=== PATIENT | female | born 1955 | race Caucasian/White ===

== ENCOUNTER 2021-05-04 03:34 | Emergency (ER) | payer SELFPAY ==
[~2021-05-04] VITALS: Ht 152.4 cm; Wt 61.0 kg
[2021-05-04] MEDS ORDERED: FAMOTIDINE 20MG/2ML VIAL IV STA (04:11)
[2021-05-04] MEDS ORDERED: ONDANSETRON HCL 4MG/2ML INJ IV STA (04:11)
[2021-05-04] MEDS ORDERED: SODIUM CHLORIDE 0.9% 1,000 ML IV ONE (04:15)
[2021-05-04 05:08] LABS: HEMATOCRIT. 39.9 % (36.0-48.0); HEMOGLOBIN. 13.5 g/dL (12.0-16.0); MEAN CORPUSCULAR VOLUME 91.7 fL (81.0-99.0); MEAN PLATELET VOLUME 9.1 fl (7.4-10.4); PLATELET 181 x1000/uL (130-400); RED BLOOD CELL COUNT 4.35 mill/uL (4.2-5.4); RED CELL DISTRIBUTION WIDTH 13.2 % (11.6-14.6)
[2021-05-04 05:14] LABS: CHLORIDE 111 mEq/L (98-107)
[2021-05-04 05:50] VITALS: BP 121/67
[2021-05-04 06:01] LABS: CLARITY URINE CLEAR (CLEAR); COLOR URINE YELLOW (YELLOW); KETONES URINE NEGATIVE (NEGATIVE); LEUKOCYTE ESTERASE URINE TRACE (NEGATIVE); NITRITE URINE NEGATIVE (NEGATIVE); OCCULT BLOOD URINE 1+ (NEGATIVE); PROTEIN URINE 1+ (NEGATIVE); SPECIFIC GRAVITY URINE 1.014 (1.005-1.030); UROBILINOGEN URINE 0.2 E.U./dL (0.2-1.0)
[2021-05-04] MEDS ORDERED: ONDA4TAB5 MT (06:15)
[2021-05-04] MEDS ORDERED: FAMO-135 MT (06:15)
[2021-05-04 06:55] LABS: PLATELET ESTIMATE NORMAL
== END 2021-05-04 06:30 | disposition home or self-care (01) ==
LOC: ER 03:46
DX: K29.20 Alcoholic gastritis without bleeding (principal); F10.10 Alcohol abuse, uncomplicated; Y90.0 Blood alcohol level of less than 20 mg/100 ml
CPT/HCPCS: 36415; 71045; 74176; 80053; 81003; 83605; 83690; 85025; 93005; 96361; 96374; 96375; 99285; J2405; J3490; J7030